=== PATIENT | male | born 1965 ===

== ENCOUNTER → 2020-12-05 | Emergency (ER) | payer OTHER ==
[~2020-12-05] VITALS: Ht 152.4 cm; Wt 90.7 kg
[~2020-12-05] MED LIST: GLUMETZA1000 MG; INSULIN SYRING1 EA29
== END | disposition home or self-care (01) ==
LOC: ER 17:58
DX: S99.811A Other specified injuries of right ankle, initial encounter (principal); V49.88XA Car occupant (driver) (passenger) injured in other specified transport accidents, initial encounter; Y93.89 Activity, other specified; Y92.89 Other specified places as the place of occurrence of the external cause; Y99.8 Other external cause status; E10.65 Type 1 diabetes mellitus with hyperglycemia